=== PATIENT | female | born 1945 | race Caucasian/White ===

== ENCOUNTER → 2025-01-27 | Outpatient (CLI) | payer MEDICARE, SELFPAY ==
[2025-01-27 08:44] LABS: Basophils # (Auto) 0.1 Thou/mm3 (0.0-0.2); Basophils % (Auto) 1 % (0-2.5); Eosinophils # (Auto) 0.4 Thou/mm3 (0.0-0.5); Eosinophils % (Auto) 5 % (0-10); Hematocrit 40.3 % (36.0-46.0); Hemoglobin 12.4 g/dL (12.0-16.0); Immature Granulocytes Auto 0.02 Thou/mm3 (0.00-0.00); Lymphocytes # (Auto) 2.1 Thou/mm3 (1.0-4.8); Lymphocytes % (Auto) 27 % (10-50); Mean Corpuscular HGB Conc 30.8 g/dl (31.0-37.0); Mean Corpuscular Hemoglobin 23.9 pg (25.0-35.0); Mean Corpuscular Volume 78 fL (80-100); Monocytes # (Auto) 0.5 Thou/mm3 (0.0-0.8); Monocytes % (Auto) 6 % (0-12); Neutrophils # (Auto) 4.6 Thou/mm3 (1.8-7.7); Neutrophils % (Auto) 61 % (37-80); Nucleated Red Blood Cell # 0.00 Thou/mm3 (0.00-0.00); Nucleated Red Blood Cell % 0 /100 WBC (0); Platelet Count 194 Thou/mm3 (140-440); RDW Standard Deviation 50.9 fL (36.4-46.3); Red Blood Count 5.19 Miln/mm3 (4.00-5.20); White Blood Count 7.6 Thou/mm3 (3.6-11.0)
[2025-01-27 09:18] LABS: Alanine Aminotransferase < 7 U/L (10-49); Albumin, Serum 4.0 gm/dL (3.4-4.8); Alkaline Phosphatase 73 U/L (46-116); Anion Gap 7 (7-16); Aspartate Amino Transferase 18 U/L (0-34); BUN/Creatinine Ratio 16 Ratio (12-20); Bilirubin,Direct 0.2 mg/dL (0.0-0.3); Bilirubin,Total 0.5 mg/dL (0.3-1.2); Blood Urea Nitrogen 16 mg/dL (9-23); Calcium 9.6 mg/dL (8.3-10.6); Carbon Dioxide 30.9 mMol/L (20.0-31.0); Cardiac Risk Estimate 3.6 RATIO (3.7-5.6); Chloride 105 mMol/L (98-107); Cholesterol 167 mg/dL (132-200); Creatinine (Component) 1.0 mg/dL (0.6-1.3); Free T4 (Free Thyroxine) 1.11 ng/dL (0.89-1.76); Glucose 100 mg/dL (74-106); HDL Cholesterol 46 mg/dL (40-60); LDL Cholesterol,Calculated 101 mg/dL (0-130); Osmolality,Calculated 286 (275-295); Potassium 4.9 mMol/L (3.4-5.1); Sodium 143 mMol/L (136-145); Thyroid Stimulating Hormone 3.55 uIU/mL (0.55-4.78); Total Protein 6.8 gm/dL (5.7-8.2); Triglycerides 99 mg/dL (30-150); eGFR 58 See Note
== END | disposition home or self-care (01) ==
LOC: COPL 07:19
PROVIDERS: PCP Family Medicine; Referring Provider Internal Medicine Cardiovascular Disease; Visit Provider Internal Medicine Cardiovascular Disease
DX: I20.9 Angina pectoris, unspecified (principal); I10 Essential (primary) hypertension; E78.5 Hyperlipidemia, unspecified
CPT/HCPCS: 36415; 80048; 80061; 80076; 84439; 84443; 85025

== ENCOUNTER 2025-04-30 21:40 | Emergency (ER) | payer MEDICARE, SELFPAY ==
[2025-04-30 21:42] VITALS: BP 160/104; PULSE 107; RESP 17; TEMP 36.8; O2SAT 96
[2025-04-30 21:43] VITALS: PULSE 100; RESP 18; O2SAT 94
[2025-04-30 22:38] VITALS: PULSE 102; RESP 18; O2SAT 98
[2025-04-30 22:40] VITALS: BMI 32.9
--- NOTE | 2025-04-30 22:41 | EDNOTE_ITS ---
ED Dizzyness RME/HPI General Chief Complaint: Nausea/Vomiting/Diarrhea Stated Complaint: DIZZINESS Time Seen by Provider: 04/30/25 22:35 Arrival date/time: 04/30/25 21:40 RME / HPI RME / HPI Narrative: DR. COSBY MAIN ED EVALUATION: 80 y/o female with Hx of Vertigo, COPD, BIBA from home presents to ED c/o dizziness x 1 day and nauseated and vomiting x 1 hour. Also reports 1 bout of diarrhea. Denies any pain. Patient is on supplemental oxygen 2L/min for COPD. Daughter states when patient experiences vertigo, she lays down and symptoms tend to resolve, but no improvement today. Patient received Influenza vaccine approximately 2 weeks ago. Denies any allergies to medication. Related Data Home Medications ?Medication ?Instructions ?Recorded ?Confirmed albuterol sulfate 90 mcg/actuation 2 puff inhalation Q ID PRN 05/12/18 06/03/22 aerosol inhaler Shortness Of Breath ranitidine HCl 75 mg tablet 75 mg PO BID 05/12/1805/13 (Zantac) Previous Rx's ?Medication ?Instructions ?Recorded meclizine 25 mg tablet 25 mg PO QID PRN dizziness # 20 tabs 05/01/25 ondansetron 4 mg disintegrating 4 mg PO Q6H PRN nausea and 05/01/25 tablet vomiting #20 tabs Allergies Allergy/AdvReac Type Severity Reaction Status Date / Time No Known Allergies Allergy Verified 04/13/22 18:23 Review of Systems Review of Systems Systems Reviewed: All systems reviewed, normal except as documented Past Medical History Past Medical History CARDIAC: Positive Cardiac Disorders and Cardiac Arrhythmia RESPIRATORY: Positive Chronic Obstructive Pulmonary Disease (COPD) and Emphysema GASTROINTESTINAL: Positive Gastrointestinal Disorders and Irritable Bowel MUSCULOSKELETAL: Positive Musculoskeletal Disorders, Arthritis and Carpal Tunnel Syndrome Surgical History SURGICAL: Positive Section ED Exam Narrative Physical exam: Generally patient is alert elderly appearing female and moderately ill- appearing, eyes pupils equal round reactive to light without rotational or vertical nystagmus, heart regular rate and rhythm with occasional extrasystolic beat, lungs clear to auscultation equal bilaterally, abdomen soft bowel sounds present nondistended nontender (rather benign exam). Course Quality Measures none Orders Category Date Time Status EKG (ED ONLY) *Do not use* NOW Care 04/30/25 22:[address] head/brain wo con Stat Exams 04/30/25 22:46 Completed EKG (ED Only) Stat Exams 04/30/25 22:45 Draft CBC Stat Lab 04/30/25 22:45 Completed CMP [Comprehensive Metabolic Panel] Stat Lab 04/30/25 22:45 Completed Lipase Stat Lab 04/30/25 22:45 Completed Troponin I Stat Lab 04/30/25 22:45 Completed Meclizine HCl [Antivert] Med 04/30/25 22:48 Discontinued 25 mg PO X1 ONE Ondansetron Inj [Zofran Inj] Med 04/30/25 22:48 Discontinued 4 mg IVP X1 ONE Sodium Chloride 0.9% 1000 ml [Ns] 1,000 ml Med 04/30/25 22:48 Discontinued IV 999 mls/hr Vital Signs Vital signs: Vital Signs Temperature 98.2 F 04/30/25 21:42 Pulse Rate 107 H 04/30/25 21:42 Respiratory Rate 17 04/30/25 21:42 Blood Pressure 160/104 H 04/30/25 21:42 Pulse Oximetry (%) 96 04/30/25 21:42 Oxygen Delivery Method Room Air 04/30/25 21:42 Dizziness MDM Narrative MDM Narrative:: Scribe Attestation: Zee Goddard am scribing for and in the presence of Dr. Cosby. Provider Notation: Although this document has been carefully reviewed, there may still be some phonetic and other typographical errors. These errors are purely grammatical due to imperfections in the software program and should not be construed in any way to compromise the substance of the patient's medical care d uring this visit. Head CT was negative. There was no electrolyte abnormality. I interpreted all labs. Patient was hydrated with a liter normal saline and given Zofran 4 mg IV and meclizine 25 mg p.o. with benefit. EKG done at 11:08 PM shows normal sinus rhythm at a rate of 72 with frequent premature atrial complexes. No ST segment elevations. QTc was 487 ms. Patient feels much improved at this time. Patient has had vertigo in the past. I will discharge the patient on meclizine and Zofran to be taken as prescribed. Clear liquid diet and advance as tolerated. Clinically, the patient is not suffering from a posterior stroke. Patient data External records reviewed:: [facility] previous records (Reviewed prior ED records from 04/13/22. Patient was seen for Chest pain.) and EMS form Clinical information provided by:: EMS and family (Daughter) Social determinants that could affect healthcare access:: none Patient has the following chronic illnesses:: Vertigo, Cardiac Arrhythmia, Mitral Valve Prolapse, Chronic Obstructive Pulmonary Disease (COPD), Emphysema, Irritable Bowel, Arthritis and Carpal Tunnel Syndrome How is presenting disease/condition affected by chronic disease/condition?: exacerbated by Evaluation data The following diagnostics were reviewed and interpreted by me:: lab results, radiology exam(s) and EKG tracing(s) Lab and/or radiology exams considered but not ordered:: None Interpretation Summary: RADIOLOGY Head/Brain CT: Findings: No significant ventricular enlargement. Intra-axial or extra-axial hemorrhage density is not seen. No mass effect or midline shift Basal cisterns are not remarkable. Fourth ventricle is midline. Cranial vault intact. Impression: Negative for acute hemorrhage, mass effect or midline shift As clinically warranted, given the patient's presentation, consider brain MRI follow-up Medications / Prescriptions Medications or Prescriptions considered but not ordered:: None Medication administrations:: Medication Administration History Discontinued Medications Sodium Chloride (Ns) 1,000 mls @ 999 mls/hr IV .Q1H1M ONE Stop: 04/30/25 23:48 Last Infusion: 05/01/25 00:01 Dose: Infused Documented By: Admin: 04/30/25 22:59 Dose: 999 mls/hr Documented By: SR Meclizine HCl (Meclizine Hcl 25 Mg Tablet) 25 mg PO X1 ONE Stop: 04/30/25 22:49 Last Admin: 04/30/25 23:45 Dose: 25 mg Documented By: SR Ondansetron HCl (Ondansetron Inj 2 Mg/Ml Inj 2 Ml) 4 mg IVP X1 ONE; Protocol Stop: 04/30/25 22:49 Last Admin: 04/30/25 23:02 Dose: 4 mg Documented By: SR See above if any Consultations Consultation(s) initiated? (list below): No Diagnosis Dizziness Differential Diagnosis: adverse reaction to drug, benign paroxysmal positional vertigo, orthostatic hypotension, vertebral basilar insufficiency, cerebrovascular accident, acute vestibular neuronitis and transient cerebral ischemia Most likely diagnosis given after review of the tests above:: None Admission Indicated Admission indicated?: not indicated Admission Request Was there a request for admission?: No Disposition Plan Disposition Plan: Discharge Discharge Attestation Discharge Attestation: The patient and all family members were given an opportunity to ask questions and understood the discharge instructions. Discharge instructions specifically effects, indications for sooner follow up or return to the emergency department, and the expected course of current diagnosis. Patient condition: Stable Discharge Plan Plan Patient Disposition: HOME (Self Care) Prescriptions/Referrals Prescriptions/Med Rec: New ondansetron 4 mg tablet,disintegrating 4 mg PO Q6H PRN (Reason: nausea and vomiting) Qty: 20 0RF meclizine 25 mg tablet 25 mg PO QID PRN (Reason: dizziness) Qty: 20 0RF No Action ranitidine HCl [Zantac 75] 75 mg Tablet 75 mg PO BID albuterol sulfate 90 mcg/actuation Hfa Aerosol Inhaler 2 puff INHALATION QID PRN (Reason: Shortness Of Breath) Referrals: Michael Disla MD [Primary Care Provider, Family Practice] - In 1 week Problem List Clinical Impression: Vertigo Patient/Caregiver Discharge Instructions Education Materials: ED Dizziness, Uncertain Cause Additional Instructions: Medication as prescribed. Keep well-hydrated. Follow-up with your doctor. Return to ER as needed or if condition worsens. Print Language: Romanian Stand Alone Forms: [employer] Award Info., Patient Portal Info Letter
--- NOTE | 2025-04-30 22:45 | EKG_ITS ---
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[id number] Requested By: Isra Flores Order Number: [id number] Reading MD: Isra Flores Measurements Intervals [place] Rate: 72 P: 82 TN: 112 QRS: 79 QRSD: 126 T: -15 QT: 462 QTc: 508 Interpretive Statements SINUS RHYTHM WITH SHORT TN INTERVAL WITH OCCASIONAL ECTOPIC PREMATURE COMPLEXES MODERATE INTRAVENTRICULAR CONDUCTION DELAY [110+ ms QRS DURATION] MODERATE ST DEPRESSION [0.05+ mV ST DEPRESSION] ABNORMAL QRS-T ANGLE [QRS-T AXIS DIFFERENCE > 60] PROLONGED QT INTERVAL Compared to ECG 04/13/2022 18:49:15 Short TN interval now present Intraventricular conduction delay now present ST (T wave) deviation now present Prolonged QT interval now present Atrial fibrillation no longer present Right bundle-branch block no longer present T-wave abnormality no longer present Possible ischemia no longer present /store/[id number].pdf
--- NOTE | 2025-04-30 22:46 | XR_ITS ---
Examination: CT brain head without contrast. 2-D sagittal coronal reconstructions Date and time of exam: April 30, 2025, 11:25 p.m., comparison 03/01/2019 INDICATIONS: Dizziness and vomiting unable to walk today CTDI: vol (mGy): 46.30 DLP: (mGycm): 924 Technique: Multiple CT axial sections of the brain have been obtained, 5 mm slice thickness. Contrast has not been administered. 2-D sagittal, coronal reconstructions have been obtained Low dose protocols were performed. One or more of the following dose reduction techniques were used; automated exposure control, adjustment of the mA and/or KV according to patient size, use of iterative reconstruction technique. Findings: No significant ventricular enlargement. Intra-axial or extra-axial hemorrhage density is not seen. No mass effect or midline shift Basal cisterns are not remarkable. Fourth ventricle is midline. Cranial vault intact. Impression: Negative for acute hemorrhage, mass effect or midline shift As clinically warranted, given the patient's presentation, consider brain MRI follow-up
[2025-04-30] MEDS: SODIUM CHLORIDE 0.9% 1000 ML 1,000 ML 999 ML IV (22:59)
[2025-04-30] MEDS: ONDANSETRON INJ 2 MG/ML INJ 2 ML 4 MG IVP (23:02)
[2025-04-30 23:21] LABS: Basophils # (Auto) 0.1 Thou/mm3 (0.0-0.2); Basophils % (Auto) 1 % (0-2.5); Eosinophils # (Auto) 0.1 Thou/mm3 (0.0-0.5); Eosinophils % (Auto) 1 % (0-10); Hematocrit 36.2 % (36.0-46.0); Hemoglobin 11.5 g/dL (12.0-16.0); Immature Granulocytes Auto 0.03 Thou/mm3 (0.00-0.00); Lymphocytes # (Auto) 1.2 Thou/mm3 (1.0-4.8); Lymphocytes % (Auto) 11 % (10-50); Mean Corpuscular HGB Conc 31.8 g/dl (31.0-37.0); Mean Corpuscular Hemoglobin 24.2 pg (25.0-35.0); Mean Corpuscular Volume 76 fL (80-100); Monocytes # (Auto) 0.3 Thou/mm3 (0.0-0.8); Monocytes % (Auto) 3 % (0-12); Neutrophils # (Auto) 9.4 Thou/mm3 (1.8-7.7); Neutrophils % (Auto) 85 % (37-80); Nucleated Red Blood Cell # 0.00 Thou/mm3 (0.00-0.00); Nucleated Red Blood Cell % 0 /100 WBC (0); Platelet Count 225 Thou/mm3 (140-440); RDW Standard Deviation 46.8 fL (36.4-46.3); Red Blood Count 4.76 Miln/mm3 (4.00-5.20); White Blood Count 11.1 Thou/mm3 (3.6-11.0)
[2025-04-30] MEDS: MECLIZINE HCL 25 MG TABLET PO (23:45)
[2025-04-30 23:49] LABS: Alanine Aminotransferase < 7 U/L (10-49); Albumin, Serum 4.2 gm/dL (3.4-4.8); Albumin/Globulin Ratio 1.3 (1.2-2.2); Alkaline Phosphatase 80 U/L (46-116); Anion Gap 13 (7-16); Aspartate Amino Transferase 16 U/L (0-34); BUN/Creatinine Ratio 15 Ratio (12-20); Bilirubin,Total 0.3 mg/dL (0.3-1.2); Blood Urea Nitrogen 17 mg/dL (9-23); Calcium 8.9 mg/dL (8.3-10.6); Calcium (Corrected) 8.9 mg/dL (8.5-10.1); Carbon Dioxide 23.2 mMol/L (20.0-31.0); Chloride 106 mMol/L (98-107); Creatinine (Component) 1.1 mg/dL (0.6-1.3); Estimated Creatinine Clearance 36.3 mL/min (>60); Globulin 3.2 gm/dL (2.3-3.5); Glucose 171 mg/dL (74-106); Lipase 31 U/L (12-53); Osmolality,Calculated 288 (275-295); Potassium 4.0 mMol/L (3.4-5.1); Sodium 142 mMol/L (136-145); Total Protein 7.4 gm/dL (5.7-8.2); Troponin I < 0.020 ng/mL (0.0-0.045); eGFR 51 See Note
[2025-04-30 23:57] VITALS: BP 152/111; PULSE 83; RESP 19; TEMP 36.6; O2SAT 98
== END 2025-05-01 02:48 | disposition home or self-care (01) ==
PROVIDERS: Emergency Provider Emergency Medicine; PCP Family Medicine
DX: R42 Dizziness and giddiness (principal); I49.40 Unspecified premature depolarization
CPT/HCPCS: 36415; 70450; 80053; 83690; 84484; 85025; 93005; 96361; 96374; 99284; J2405; J7030; A9270